=== PATIENT | female | born 1955 | race Caucasian/White ===

== ENCOUNTER 2017-07-10 15:34 | Emergency (ER) | payer BC ==
[2017-07-10 15:47] VITALS: RESP 18; TEMP 98.1
[2017-07-10 15:48] VITALS: BMI 27.4
--- NOTE | 2017-07-10 15:55 | ED PDOC ---
Arrival/HPI - General Chief Complaint: Trauma Time Seen by Provider: 07/10/17 15:47 Historian: Patient - History of Present Illness Narrative History of Present Illness (Text): 07/10/17 15:50 Johnna Willams is a 62 year old female complaining of left leg pain after car door closed on leg prior to arrival. Patient's family states that patient was getting out of the car when the door was pushed closed and hurt her leg. Patient denies any hip pain, back pain, neck pain, or any other complaints. Time/Duration: Prior to Arrival Symptom Onset: Sudden Activities at Onset: Light Associated Symptoms (Text): none Past Medical History - Provider Review Nursing Documentation Reviewed: Yes - Infectious Disease Hx of Infectious Diseases: None - Cardiac Hx Hypertension: Yes - Psychiatric Hx Substance Use: No Family/Social History - Physician Review Nursing Documentation Reviewed: Yes Family/Social History: No Known Family HX Smoking Status: Never Smoked Hx Alcohol Use: No Hx Substance Use: No Allergies/Home Meds Allergies/Adverse Reactions: Allergies No Known Allergies Allergy (Verified 07/10/17 15:41) Home Medications: Home Meds Medication Instructions Recorded Confirmed Unobtainable 07/10/17 07/10/17 Review of Systems - Physician Review All systems were reviewed & negative as marked: Yes - Review of Systems Constitutional: absent: Fevers, Night Sweats Eyes: absent: Vision Changes ENT: absent: Hearing Changes Respiratory: absent: SOB, Cough Cardiovascular: absent: Chest Pain Gastrointestinal: absent: Abdominal Pain Genitourinary Female: absent: Dysuria, Frequency Musculoskeletal: Other (Left leg pain) Skin: absent: Rash, Pruritis Neurological: absent: Headache, Dizziness Endocrine: absent: Diaphoresis Hemo/Lymphatic: absent: Adenopathy Psychiatric: absent: Anxiety, Depression Physical Exam Vital Signs Reviewed: Yes Vital Signs Temp Pulse Resp BP Pulse Ox 07/10/17 15:46 98.1 F 90 18 157/92 H 98 Temperature: Afebrile Blood Pressure: Hypertensive Pulse: Regular Respiratory Rate: Normal Appearance: Positive for: Well-Appearing, Non-Toxic, Comfortable Pain Distress: None Mental Status: Positive for: Alert and Oriented X 3 - Systems Exam Head: Present: Atraumatic, Normocephalic Pupils: Present: PERRL Extroacular Muscles: Present: EOMI Conjunctiva: Present: Normal Mouth: Present: Moist Mucous Membranes Neck: Present: Normal Range of Motion Respiratory/Chest: Present: Clear to Auscultation, Good Air Exchange. No: Respiratory Distress, Accessory Muscle Use Cardiovascular: Present: Regular Rate and Rhythm, Normal S1, S2. No: Murmurs Abdomen: Present: Normal Bowel Sounds. No: Tenderness, Distention, Peritoneal Signs Back: Present: Normal Inspection Upper Extremity: Present: Normal Inspection. No: Cyanosis, Edema Lower Extremity: Present: Normal Inspection. No: Edema Neurological: Present: GCS=15, CN II-XII Intact, Speech Normal Skin: Present: Warm, Dry, Normal Color. No: Rashes Psychiatric: Present: Alert, Oriented x 3, Normal Insight, Normal Concentration Medical Decision Making ED Course and Treatment: 07/10/17 15:59 Impression: 62 year old female complaining of left leg pain after car door closed on her leg prior to arrival. Plan: -- Tibula, Fibula X-ray -- Motrin -- Reassess and disposition Progress Notes: - RAD Interpretation Radiology Orders: 07/10/17 15:51 TIBIA FIBULA LEFT [RAD] Stat - Medication Orders Current Medication Orders: Discontinued Medications Ibuprofen (Motrin Tab) 400 mg PO STAT STA Stop: 07/10/17 15:53 Last Admin: 07/10/17 16:01 Dose: Not Given Non-Admin Reason: Patient Refused - Scribe Statement The provider has reviewed the documentation as recorded by the Davida Cruz Provider Scribe Attestation: All medical record entries made by the Scribe were at my direction and personally dictated by me. I have reviewed the chart and agree that the record accurately reflects my personal performance of the history, physical exam, medical decision making, and the department course for this patient. I have also personally directed, reviewed, and agree with the discharge instructions and disposition. Disposition/Present on Arrival - Present on Arrival Any Indicators Present on Arrival: No History of DVT/PE: No History of Uncontrolled Diabetes: No Urinary Catheter: No History of Decub. Ulcer: No History Surgical Site Infection Following: None - Disposition Have Diagnosis and Disposition been Completed?: Yes Diagnosis: Contusion Disposition: HOME/ ROUTINE Disposition Time: 16:30 Condition: STABLE Forms: [employer] (Kiswahili)
[2017-07-10 16:26] VITALS: BP 149/81; PULSE 88; O2SAT 100
--- NOTE | 2017-07-10 16:38 | RAD ---
PROCEDURE: Radiographs of the left tibia and fibula. HISTORY: trauma COMPARISON: None available. TECHNIQUE: Frontal and lateral views obtained. FINDINGS: BONES: No fracture or destructive lesion. JOINT SPACES: Unremarkable. OTHER FINDINGS: None. IMPRESSION: Unremarkable radiographs of the left tibia and fibula.
== END 2017-07-10 16:26 | disposition home or self-care (01) ==
LOC: ED 15:34
DX: S80.12XA Contusion of left lower leg, initial encounter (principal); W23.0XXA Caught, crushed, jammed, or pinched between moving objects, initial encounter; I10 Essential (primary) hypertension